=== PATIENT | female | born 1995 | race Caucasian/White ===

== ENCOUNTER 2020-06-30 14:01 | Emergency (ER) | payer OTHER ==
[~2020-06-30] VITALS: Ht 160 cm; Wt 68.0 kg
[2020-06-30 14:01] VITALS: BP_SYST 118
== END 2020-06-30 16:01 | disposition left against medical advice (07) ==
LOC: SED 14:01
DX: M25.551 Pain in right hip (principal)
CPT/HCPCS: 99283